=== PATIENT | female | born 1980 | race Caucasian/White ===

== ENCOUNTER 2025-04-08 18:21 | Emergency (ER) | payer SELFPAY ==
[2025-04-08 18:24] VITALS: BP 151/99
[2025-04-08 18:30] VITALS: BMI 29.5
--- NOTE | 2025-04-08 18:54 | ED.GENMED ---
History of Present Illness
General
Chief Complaint: Rabies
Source: patient
Exam Limitations: none
Time Seen by Provider: 04/08/25 18:45
History of Present Illness
History of Present Illness:
See MDM
Past History
Past History
ED Past Medical History: None
ED Past Surgical History: None
Social History
Tobacco: Non-smoker
Alcohol: None
Phy Exam
Physical Exam
Physical Exam:
See MDM
Course
Orders/Labs/Results
Orders:
Orders
04/08/25 18:54
Rabies Immune Globulin/Pf [HyperRAB] 1,814 unit IM NOW STA
Rabies Vaccine (Pcec)/Pf [Rabavert Rabies Vacc W-Diluent] 2.5 unit IM .ONCE ONE
Tetanus/Diphth/Acelpertussis [Adacel] 0.5 ml IM .ONCE ONE
Vital Signs
Initial and Last Documented VS:
Initial Vital Signs
Temp Pulse Resp BP Pulse Ox
98.4 F 92 18 151/99 98
04/08/25 18:24 04/08/25 18:24 04/08/25 18:24 04/08/25 18:24 04/08/25 18:24
Last Documented Vital Signs
Temp Pulse Resp BP Pulse Ox
98.4 F 92 18 151/99 98
04/08/25 18:24 04/08/25 18:24 04/08/25 18:24 04/08/25 18:24 04/08/25 18:24
MDM/Problems Addressed
Differential Diagnosis Includes:
HPI and MDM Narrative:
44-year-old female presenting to the emergency department for rabies vaccine. Patient is a patrol police sergeant. She was called to someone's house to remove a baby raccoon. When reaching for the baby raccoon, she did not realize that the mother raccoon
was there. The mother bit her on the left thumb. Patient is unsure about her last tetanus shot.
Physical exam
General: Well appearing and non-toxic
HEENT: protecting airway
Neck: appears supple
CV: No evidence of cyanosis
Resp: No accessory muscle use
Abd: Non-distended
Extremities: No deformities
Neuro: alert
Psych: Normal affect
Skin: Superficial abrasion to left thumb
Problems Addressed including Acute and Chronic Conditions affecting care:
1. Raccoon bite
Acuity: acute
Prognosis: stable
Details: Given the high risk for rabies transmission, will start rabies vaccine
Differential Diagnosis (but not limited to): Abrasion, animal bite
Testing considered: Thumb x-ray but there is no bony tenderness
Drug therapy (if applicable): OTC meds, please see d/c instruction regarding Rx drugs
Amount and/or Complexity of Data Reviewed
Clinical info obtained from: Patient
External data reviewed: N/A
Labs I independently reviewed (but not limited to): N/A
Radiology: N/A
Pulse Ox: not hypoxic
EKG independently reviewed: N/A
Information Security Consultant: N/A
Critical Care: N/A
Risk of Complication:
Social Determinants of health: Good social support
Discussed with other providers: N/A
Escalation of Care includes Admit/Obs: After being observed in the Emergency Department, pt stable for discharge.
Occasional wrong word or 'sound a like' substitutions may have occurred due to the inherent limitations of voice recognition software. Read the chart carefully and recognize, using context, where substitutions have occurred.
*Critical Care Note
Total Time (30-74mins, 75-104mins- exclusive of procedures): Not Applicable
ED Attending Note
-
Portions of this chart may have been created with voice recognition software.� Occasional wrong word or��sound alike� substitutions may have occurred due to the inherent limitations of voice recognition software.
Discharge Plan
Departure
Patient Disposition: Home (Routine Discharge)
Date of Disposition: 04/08/25
Time of Disposition: 18:57
Patient with high blood pressure during this ER visit?: Yes
Discharge Problem:
Animal bite
Instructions: Animal Bites (DC), BLOOD PRESSURE
Stand Alone Forms: Rabies Vaccine Post Exp Dosing
Activity Restrictions/Additional Instructions:
Please return for any concern of infection from the bite. Please follow-up with the infusion center for the remainder of vaccines.
Interventions
Interventions:
*Risk Screen - Suicide Last Done: 04/08/25 18:24
*General Assessment Last Done: 04/08/25 18:24
*Neglect/Abuse Screening Last Done: 04/08/25 18:24
*ED- Fall Risk Assessment Last Done: 04/08/25 18:24
*ED COVID-19 Vaccine History Last Done: 04/08/25 18:24
Discharge Date and Time
Print Language: FRENCH
[2025-04-08 19:22] VITALS: BP 136/92
[2025-04-08] MEDS: ADACEL 0.5 ML IM (19:37)
[2025-04-08] MEDS: RABAVERT RABIES VACC W-DILUENT 2.5 UNIT IM (19:43)
[2025-04-08] MEDS: HyperRAB 1814 UNIT IM (19:44)
--- NOTE | 2025-04-08 19:54 | EDRN ---
Dr Davis informed this RN that none of the immune globulin should be administered in or around pt's wound.
== END 2025-04-08 19:54 | disposition home or self-care (01) ==
LOC: EMR 18:21
PROVIDERS: EMERGENCY PHYSICIAN Student in an Organized Health Care Education/Training Program; FAMILY PHYSICIAN Family Medicine
DX: S60.312A Abrasion of left thumb, initial encounter (principal); W55.51XA Bitten by raccoon, initial encounter; Y93.89 Activity, other specified; Y92.89 Other specified places as the place of occurrence of the external cause; Y99.0 Civilian activity done for income or pay; Z29.14 Encounter for prophylactic rabies immune globulin; Z23 Encounter for immunization; R03.0 Elevated blood-pressure reading, without diagnosis of hypertension
CPT/HCPCS: 99284; 90471; 96372; 90375; 90675; 90715

== ENCOUNTER 2025-04-21 15:21 | Outpatient (RCR) | payer OTHER, SELFPAY ==
[2025-04-11 14:10] VITALS: BP 142/82
[2025-04-11] MEDS: RABAVERT RABIES VACC W-DILUENT 2.5 UNIT IM (14:31)
[2025-04-14 08:51] VITALS: BP 127/85
[2025-04-14] MEDS: RABAVERT RABIES VACC W-DILUENT 2.5 UNIT IM (08:59)
[2025-04-21 15:27] VITALS: BP 141/84
[2025-04-21] MEDS: RABAVERT RABIES VACC W-DILUENT 2.5 UNIT IM (15:33)
== END 2025-04-24 10:06 | disposition home or self-care (01) ==
LOC: OID 15:21
PROVIDERS: ATTENDING PHYSICIAN Student in an Organized Health Care Education/Training Program
DX: Z20.3 Contact with and (suspected) exposure to rabies (principal); Z23 Encounter for immunization
CPT/HCPCS: 90471; 90675